=== PATIENT | male | born 1980 | race Caucasian/White ===

== ENCOUNTER 2018-06-22 09:23 | Outpatient (REF) | payer OTHER, SELFPAY ==
[2018-06-22 14:09] LABS: ALT 65 U/L (12-78); AST 36 U/L (15-37); Albumin 4.1 g/dL (3.4-5.0); Alkaline Phosphatase 95 U/L (46-116); BUN 22 mg/dL (7-18); Bilirubin, Total 0.6 mg/dL (0.2-1.0); CREATININE 0.88 mg/dL (0.70-1.30); Calcium 9.1 mg/dL (8.5-10.1); Chloride 103 mmol/L (98-107); Cholesterol 224 mg/dL (50-200); Glucose 123 mg/dL (70-100); HDL Cholesterol 69 mg/dL (40-60); LDL CHOLESTEROL 137 mg/dL (<100); Potassium 4.3 mmol/L (3.5-5.1); Sodium 140 mmol/L (136-145); Total Protein 7.7 g/dL (6.4-8.2); Triglyceride 60 mg/dL (30-150)
[2018-06-22 14:16] LABS: Abs Immature Grans 0.01 k/cumm (0.0-0.09); Absolute Basophil Count 0.04 k/cumm (0.0-0.2); Absolute Eosinophil Count 0.18 k/cumm (0.0-0.7); Absolute Lymphocyte Count 2.09 k/cumm (1.2-3.4); Absolute Monocyte Count 0.39 k/cumm (0.11-0.7); Absolute Neutrophil Count 2.68 k/cumm (1.2-6.7); Basophils % 0.7; Eosinophils % 3.3; HCT 46.5 % (40.0-50.0); HGB 15.8 g/dL (13.5-17.5); Immature Grans % 0.2; Lymphocytes % 38.8; Mean Corpuscular Hemoglobin 29.3 pg (27.0-33.0); Mean Corpuscular Volume 86.1 fL (80-95); Mean Platelet Volume 9.8 fL (8.0-11.0); Monocytes % 7.2; Neutrophils % 49.8; Platelet Count 266 x1000/uL (130-400); RBC Distribution Width 12.7 % (11.8-14.1); White Blood Cell Count 5.39 k/cumm (4.4-10.8)
[2018-06-22 14:21] LABS: COMMENT (LAB VIEW ONLY) 146.22 mg/dL; Microalb ug/mg Crea 50.6 ug/mg Cr
[2018-06-22 14:32] LABS: Hemoglobin A1C 6.2 % (4.5-6.2)
== END 2018-06-22 09:43 ==
LOC: NCHCN 09:23
PROVIDERS: PCP Family Medicine; Visit Provider Family Medicine
DX: R73.01 Impaired fasting glucose (principal); R80.9 Proteinuria, unspecified; Z00.00 Encounter for general adult medical examination without abnormal findings; Z13.220 Encounter for screening for lipoid disorders
CPT/HCPCS: 80053; 80061; 83721; 82043; 82570; 83036; 85025

== ENCOUNTER 2019-02-16 21:16 | Emergency (ER) | payer OTHER, SELFPAY ==
[2019-02-16] VITALS (27 sets, daily range): BP systolic 126–156; BP diastolic 65–91; PULSE 56–71; RESP 10–17; TEMP 36.3; O2SAT 93–98
[2019-02-16] MEDS: Normal Saline Flush 10 ML SYR IVP (21:30)
[2019-02-16 21:45] LABS: Abs Immature Grans 0.01 k/cumm (0.0-0.09); Absolute Basophil Count 0.03 k/cumm (0.0-0.2); Absolute Eosinophil Count 0.15 k/cumm (0.0-0.7); Absolute Lymphocyte Count 3.22 k/cumm (1.2-3.4); Absolute Monocyte Count 0.64 k/cumm (0.11-0.7); Basophils % 0.4; Eosinophils % 1.9; HCT 44.6 % (40.0-50.0); HGB 15.4 g/dL (13.5-17.5); Immature Grans % 0.1; Mean Corp. HGB Concentration 34.5 g/dL (32.0-36.0); Mean Corpuscular Hemoglobin 29.4 pg (27.0-33.0); Mean Corpuscular Volume 85.3 fL (80-95); Neutrophils % 49.6; Platelet Count 272 x1000/uL (130-400); RBC 5.23 m/cumm (4.50-6.00); RBC Distribution Width 12.3 % (11.8-14.1); White Blood Cell Count 8.05 k/cumm (4.4-10.8)
--- NOTE | 2019-02-16 21:51 | ED.GENADUL_ITS ---
Discharge Plan Disposition Patient Disposition: HOME Condition: Good Discharge Details Chief Complaint: Chest Pain Clinical Impression: Fatigue, Chest pain Primary Care Provider: Viji Chun ED Provider: Patrick Lo Home Meds and New Rx's Prescriptions: Continued ibuprofen 200 MG tablet 800 mg PO DAILY PRNRF: 0 Discharge Instructions Instructions: Chest Pain (ED), Fatigue (ED) Additional Instructions: Please return immediately to the emergency department if you develop any new or worsening symptoms or if you become otherwise concerned. It is extremely important that you call soon as possible to make an appointment to be seen in follow-up for this visit by her primary care doctor. It is also extremely important that you undergo an outpatient cardiac stress test as we discussed, which has been ordered for you. Referrals: Viji Chun [Primary Care Provider] - Discharge Data Discharge Date/Time-TO BE ENTERED AT DEPARTURE: 02/17/19 00:50 Medical Decision Making <Lola Ferreira MD - Last Filed: 02/20/19 07:42> Andrew Tanner is a 38 year-old man with history of hypertension controlled with diet who presented to the emergency department with 1 week of fatigue, intermittent lightheadedness without syncope, and intermittent chest pain not currently occurring. On exam patient is very well nontoxic-appearing. Inferior aspect of sternum with diffuse mild tenderness palpation without other abnormal findings on examination of the chest. Benign cardiopulmonary and abdominal exams. Benign examination of the lower extremities. Concern for dehydration, metabolic/lyte disturbance, doubt ACS, PE. Exam/history is not consistent with acute emergent intra-abdominal process, acute emergent aortic pathology, sepsis. Plan for EKG, chest x-ray, IV fluid hydration, screening labs, telemetry. Will monitor and reassess. Patient reporting no symptoms on reassessment. EKG, chest x-ray, labs nondiagnostic. Plan for repeat troponin, repeat EKG, and outpatient stress test, follow-up if work-up negative. Pt signed out to Dr. Lo at time of shift change with repeat EKG and repeat trop pending, anticipate d/c to home if repeat trop/ekg negative. Outpt stress test ordered. Medical Records Medical records reviewed: Yes I reviewed the patient's medical records. Imaging Data Radiologic Study: Attestation: I personally reviewed and interpreted this imaging study as follows: Radiologist's impression: Exam: XR Chest, 2 Views Exam date and time: 02/16/2019 9:35 PM Age: 38 years old Clinical history: Chest pressure and sternal or substernal pain TECHNIQUE: Imaging protocol: XR of the chest Views: 2 views. COMPARISON: No relevant prior studies available. FINDINGS: Lungs: Normal pulmonary expansion. Pulmonary vasculature grossly normal. No infiltrates. Pleural space: No pleural effusion. No pneumothorax. Heart/Mediastinum: Heart size normal. No tracheal/mediastinal shift. Bones/joints: No acute osseous abnormalities are identified. IMPRESSION: No acute thoracic process. Lab Data Lab results reviewed: Yes I reviewed the patient's lab results. Labs: Laboratory Tests Range/Units 02/16/19 02/16/19 02/16/19 21:30 21:30 21:30 WBC (4.4-10.8) k/cumm 8.05 RBC (4.50-6.00) m/cumm 5.23 Hgb (13.5-17.5) g/dL 15.4 Hct (40.0-50.0) % 44.6 MCV (80-95) fL 85.3 MCH (27.0-33.0) pg 29.4 MCHC (32.0-36.0) g/dL 34.5 RDW (11.8-14.1) % 12.3 Plt Count (130-400) x1000/uL 272 MPV (8.0-11.0) fL 9.0 Immature Gran % 0.1 Neutrophils % 49.6 Lymphocytes % 40.0 Monocytes % 8.0 Eosinophils % 1.9 Basophils % 0.4 Absolute Neutrophils (1.2-6.7) k/cumm 4.00 Absolute Lymphocytes (1.2-3.4) k/cumm 3.22 Absolute Monocytes (0.11-0.7) k/cumm 0.64 Absolute Eosinophils (0.0-0.7) k/cumm 0.15 Absolute Basophils (0.0-0.2) k/cumm 0.03 D-Dimer (<500) ng/mlFEU 171 Sodium (136-145) mmol/L 138 Potassium (3.5-5.1) mmol/L 3.9 Chloride (98-107) mmol/L 102 Carbon Dioxide (21.0-32.0) mmol/L 25.9 Anion Gap (3-11) mmol/L 10.1 BUN (7-18) mg/dL 19 H Creatinine (0.70-1.30) mg/dL 0.87 Estimated GFR/1.73 m2 (mL/min/1.73m2) >= 60.00 Glucose (74-106) mg/dL 125 H Calcium (8.5-10.1) mg/dL 8.9 Magnesium (1.8-2.4) mg/dL 2.0 Total Bilirubin (0.2-1.0) mg/dL 0.6 AST (15-37) U/L 42 H ALT (16-63) U/L 71 H Alkaline Phosphatase (46-116) U/L 91 Troponin I (<0.06) ng/Ml < 0.05 NT-Pro-B Natriuret Pep (<300) pg/mL 7 Total Protein (6.4-8.2) g/dL 8.0 Albumin (3.4-5.0) g/dL 4.2 TSH (0.36-3.74) uIU/mL Range/Units 02/16/19 21:30 WBC (4.4-10.8) k/cumm RBC (4.50-6.00) m/cumm Hgb (13.5-17.5) g/dL Hct (40.0-50.0) % MCV (80-95) fL MCH (27.0-33.0) pg MCHC (32.0-36.0) g/dL RDW (11.8-14.1) % Plt Count (130-400) x1000/uL MPV (8.0-11.0) fL Immature Gran % Neutrophils % Lymphocytes % Monocytes % Eosinophils % Basophils % Absolute Neutrophils (1.2-6.7) k/cumm Absolute Lymphocytes (1.2-3.4) k/cumm Absolute Monocytes (0.11-0.7) k/cumm Absolute Eosinophils (0.0-0.7) k/cumm Absolute Basophils (0.0-0.2) k/cumm D-Dimer (<500) ng/mlFEU Sodium (136-145) mmol/L Potassium (3.5-5.1) mmol/L Chloride (98-107) mmol/L Carbon Dioxide (21.0-32.0) mmol/L Anion Gap (3-11) mmol/L BUN (7-18) mg/dL Creatinine (0.70-1.30) mg/dL Estimated GFR/1.73 m2 (mL/min/1.73m2) Glucose (74-106) mg/dL Calcium (8.5-10.1) mg/dL Magnesium (1.8-2.4) mg/dL Total Bilirubin (0.2-1.0) mg/dL AST (15-37) U/L ALT (16-63) U/L Alkaline Phosphatase (46-116) U/L Troponin I (<0.06) ng/Ml NT-Pro-B Natriuret Pep (<300) pg/mL Total Protein (6.4-8.2) g/dL Albumin (3.4-5.0) g/dL TSH (0.36-3.74) uIU/mL 3.56 ECG Data Attestation: I personally reviewed and interpreted this ECG (s) as follows: Interpretation: EKG shows sinus rhythm at 63, normal axis, no acute ischemic changes, nondiagnostic EKG <Patrick Lo MD - Last Filed: 02/17/19 00:40> Patient signed out to me pending repeat troponin and EKG. Patient had presented with chest pain and fatigue. Seen primarily by Dr. Ferreira, please see her note for presentation. Work-up unremarkable. Patient's repeat EKG remains sinus rhythm at a rate of 83. Normal axis and intervals. No ST changes. Repeat troponin negative. Patient will be discharged home to follow-up with primary care next week. Dr. Ferreira has ordered an outpatient stress test. Lab Data Lab results reviewed: Yes I reviewed the patient's lab results. ECG Data Attestation: I personally reviewed and interpreted this ECG (s) as follows: Prior ECG tracings: available for review Interpretation: Sinus rhythm at 83. Normal axis and intervals. Normal ST segments. HPI <Lola Ferreira MD - Last Filed: 02/20/19 07:42> General Mode of arrival: ambulatory . Date/Time Provider Initiated Documentation: 02/16/19 21:24 . Limitations to Documentation: no limitations . Information obtained by: patient, RN notes reviewed and old records reviewed . HPI Narrative: Andrew Tanner is a 38-year-old man with a history of hypertension improved with diet presenting to the emergency department with fatigue, chest pain. Patient reports that over the past week he has noticed that he feels more tired than usual. He has also had intermittent pain in his left upper abdomen and right upper abdomen; these seem to have resolved a few days ago and are not currently occurring. He has also had mild intermittent light headedness that is nonexertional, has not occurred in the last day or 2. Patient reports that he has noticed central chest pain intermittently in the past few days, nonexertional, nonpleuritic, non-positional. 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 Patient reports that his feeling of general fatigue has persisted. He denies fevers, shortness of breath, cough, palpitations, any other pain, vomiting, diarrhea, numbness, weakness. No recent illness, no recent travel, has been eating and drinking as usual. Patient reports that his chest pain is not currently occurring. Related Data Home Medications Medication Instructions Recorded Confirmed ibuprofen 800 mg PO DAILY PRN 08/03/13 06/14/17 Allergies Allergy/AdvReac Type Severity Reaction Status Date / Time No Known Allergies Allergy Unverified 06/14/17 12:39 General Stated Complaint: Chest Pain ITALO: 3 Review of Systems <Lola Ferreira MD - Last Filed: 02/20/19 07:42> Narrative: Constitutional: denies fevers, reports fatigue Eyes: denies eye pain ENT: denies facial pain, dental pain, sore throat Cardiovascular: denies edema, reports chest pain, lightheadedness Respiratory: denies SOB, cough GI: denies vomiting, diarrhea, reports right upper and left upper quadrant abdominal pain resolved for the past few days : denies flank pain MSK: denies back pain, neck pain, arthralgias, myalgias Skin: denies rash Neuro: denies headaches, numbness, weakness PFSH <Lola Ferreira MD - Last Filed: 02/20/19 07:42> Social History Smoking/Tobacco Use Status: Never Drug use: Never Do you feel safe at home: Yes Do you feel safe in your relationship?: Yes Exam <Lola Ferreira MD - Last Filed: 02/20/19 07:42> Narrative Exam Narrative: Constitutional: well and [id number], pleasant, conversing normally HENT: head atraumatic/normocephalic/normal inspection, mucous membranes moist Eyes: conjunctiva normal, sclera normal, pupils 3mm b/l Neck: no stridor, normal ROM, trachea midline Chest: normal inspection, inferior aspect of sternum diffusely tender to palpation without crepitus, deformity, or overlying skin changes, left and right lower lateral and anterior ribs nontender to palpation Resp: normal work of breathing, LCTAB Cardio: normal rate, normal rhythm, no murmur appreciated GI: abdomen soft, non-tender, non-distended Skin: warm, dry, normal color, no rash Neuro: alert, not altered, grossly non-focal, normal tone Ext: no edema, no posterior calf tenderness to palpation Psych: normal mood, normal affect, normal behavior Course <Lola Ferreira MD - Last Filed: 02/20/19 07:42> Vital Signs Vital signs: Vital Signs Temperature 36.3 C L 02/16/19 21:28 Pulse 63 02/16/19 21:28 Respiratory Rate 16 02/16/19 21:28 Blood Pressure 146/84 H 02/16/19 21:28 Pulse Oximetry 97 02/16/19 21:28 Temperature 36.3 C L 02/16/19 21:28 Temperature Source Temporal Artery Scan 02/16/19 21:28 Pulse 63 02/16/19 21:28 Respiratory Rate 16 02/16/19 21:28 Blood Pressure 146/84 H 02/16/19 21:28 Blood Pressure Position Supine 02/16/19 21:28 Pulse Oximetry 97 02/16/19 21:28 Oxygen Delivery Method Room Air 02/16/19 21:28 Oxygen Flow Rate 0 02/16/19 21:28 Pain Level 5 02/16/19 21:28 Lab/Test Results Lab/Test Results: Laboratory Tests Range/Units 02/16/19 21:30 WBC (4.4-10.8) k/cumm 8.05 RBC (4.50-6.00) m/cumm 5.23 Hgb (13.5-17.5) g/dL 15.4 Hct (40.0-50.0) % 44.6 MCV (80-95) fL 85.3 MCH (27.0-33.0) pg 29.4 MCHC (32.0-36.0) g/dL 34.5 RDW (11.8-14.1) % 12.3 Plt Count (130-400) x1000/uL 272 MPV (8.0-11.0) fL 9.0 Immature Gran % 0.1 Neutrophils % 49.6 Lymphocytes % 40.0 Monocytes % 8.0 Eosinophils % 1.9 Basophils % 0.4 Absolute Neutrophils (1.2-6.7) k/cumm 4.00 Absolute Lymphocytes (1.2-3.4) k/cumm 3.22 Absolute Monocytes (0.11-0.7) k/cumm 0.64 Absolute Eosinophils (0.0-0.7) k/cumm 0.15 Absolute Basophils (0.0-0.2) k/cumm 0.03 Sign Out <Lola Ferreira MD - Last Filed: 02/20/19 07:42> Sign Out Data: Sign Out Comment: Pt signed out to Dr. Lo at time of shift change with repeat EKG and repeat trop pending. Last updated by Lola Ferreira MD at 02/16/19 23:50
[2019-02-16 22:04] LABS: ALT 71 U/L (16-63); AST 42 U/L (15-37); Albumin 4.2 g/dL (3.4-5.0); Alkaline Phosphatase 91 U/L (46-116); Anion Gap 10.1 mmol/L (3-11); BUN 19 mg/dL (7-18); Bilirubin, Total 0.6 mg/dL (0.2-1.0); CO2 25.9 mmol/L (21.0-32.0); CREATININE 0.87 mg/dL (0.70-1.30); Calcium 8.9 mg/dL (8.5-10.1); Chloride 102 mmol/L (98-107); Glucose 125 mg/dL (74-106); NT-proBNP 7 pg/mL (<300); Potassium 3.9 mmol/L (3.5-5.1); Sodium 138 mmol/L (136-145)
[2019-02-16 22:13] LABS: Troponin I < 0.05 ng/Ml (<0.06)
[2019-02-16 22:15] LABS: D-Dimer 171 ng/mlFEU (<500)
[2019-02-16 22:31] LABS: TSH (W/Ref FT4) 3.56 uIU/mL (0.36-3.74)
--- NOTE | 2019-02-16 23:05 | DI.RAD_ITS ---
EXAM: XR CHEST 2V PA LATERAL CLINICAL HISTORY: chest pain. TECHNIQUE: 2D digital imaging was performed. COMPARISON: CHEST 2 VIEWS PA,LAT from 07/31/2009 FINDINGS: LUNGS: Clear. No pleural abnormality seen. HEART: Normal. MEDIASTINUM: Normal. OTHER FINDINGS:Normal. IMPRESSION: No acute pulmonary findings.
--- NOTE | 2019-02-16 23:16 | DI.VRAD_ITS ---
PROCEDURE INFORMATION: Exam: XR Chest, 2 Views Exam date and time: 02/16/2019 9:35 PM Age: 38 years old Clinical history: Chest pressure and sternal or substernal pain TECHNIQUE: Imaging protocol: XR of the chest Views: 2 views. COMPARISON: No relevant prior studies available. FINDINGS: Lungs: Normal pulmonary expansion. Pulmonary vasculature grossly normal. No infiltrates. Pleural space: No pleural effusion. No pneumothorax. Heart/Mediastinum: Heart size normal. No tracheal/mediastinal shift. Bones/joints: No acute osseous abnormalities are identified. IMPRESSION: No acute thoracic process. Dictated and Authenticated by: Juaquin Reza MD. Ordering:JUAN Davila MD
[2019-02-17] VITALS (9 sets, daily range): BP systolic 123–130; BP diastolic 73–81; PULSE 55–76; RESP 12–20; TEMP 36.8; O2SAT 94–97
--- NOTE | 2019-02-17 00:31 | NUR.NOTE ---
Nursing Note: 2nd set of troponin and EKG taken to rule out cardiac problem. Pt tolerated procedure well. Awaiting results and possibly be discharged home if labs are negative. Pt's pain has been resolved since admit to ED. Pt has slept comfortably during his ED stay. No complaints or needs at this time.
[2019-02-17 00:36] LABS: Troponin I < 0.05 ng/Ml (<0.06)
== END 2019-02-17 00:50 | disposition home or self-care (01) ==
PROVIDERS: Student in an Organized Health Care Education/Training Program; Emergency Provider Emergency Medicine; PCP Family Medicine
DX: R53.83 Other fatigue (principal); R07.9 Chest pain, unspecified; R10.10 Upper abdominal pain, unspecified; I10 Essential (primary) hypertension
CPT/HCPCS: 36415; 80053; 93005; 99285; 71046; 83735; 83880; 84443; 84484; 85025; 85379; 93010; J3490

== ENCOUNTER 2019-02-21 00:08 | Outpatient (CLI) | payer OTHER, SELFPAY ==
--- NOTE | 2019-02-21 08:30 | ETT_ITS ---
APPROVED REPORT Exam: Exercise Treadmill Patient Location: Out-Patient Room/Bed: Stress Nurse: Nellie Whitten RN BMI: 35.60 Baseline Rhythm: Sinus Rhythm Indications: Patient presented to the ER on 02/16/19 with intermittent left sided chest pain, fatigue , and occasional lightheadedness. Medical History Allergies: No known drug allergies Cardiac Risk Factors: FHX of CAD, HTN, Hyperlipidemia Pretest Chest Pain Characteristics: No chest pain Exercise History: Physically active Lung Sounds: Clear to auscultation Heart Sounds: Regular Stress Test Details Test: Exercise stress testing was performed using a Markel protocol. Rest Stress HR Max Heart Rate (APMHR): 180 bpm Resting HR Supine: 61 bpm Target HR (85% APMHR): 153 bpm Resting HR Standin bpm Max HR Achieved: 171 bpm % of APMHR: 95 BP Resting BP Supine: 138/95 mmHg Resting BP Standin/80 mmHg Max BP: 162/78 mmHg BP response to stress: Normal blood pressure response to stress. ECG Resting ECG: Sinus Rhythm ST Change: none Ectopy: none Stress ECG: Sinus Tachycardia ST Change: Normal Arrhythmia: None Recovery ECG: Sinus Rhythm Recovery ST Change: Normal Recovery Arrhythmia: None Clinical Reason for Termination: Fatigue Exercise duration: 12 min03 sec Highest Stage Achieved: Stage 3: 3.4 mph at 14% grade. Exercise capacity: 13.50 METs Functional Capacity: Average Capacity Stress ECG Conclusion 1. Patient exercised for 12 minutes (13.5 METS) which is average exercise capacity for his age 2. The test was ended due to fatigue. The patient reached 95% of predicted heart rate. 3. There was no evidence of ischemia on the ECG portion of the exam 4. The Centeno Score (11) estimates an annual cardiovascular mortality of 0% and a five year survival of 96%. Using the Centeno Score there is a low probability of any angiographic coronary disease. Protocol Used: Markel Protocol Stress Test Summary STAGE Time (mins) Speed (mph) Grade (%) HR BP SYMPTOMS METS Supine 61 138/95 Standing 65 136/80 1 3 1.7 10 97 142/90 4.6 2 6 2.5 12 96 144/92 7 3 9 3.4 14 145 146/92 10.2 4 12 4.2 16 12.9 5 15 5.0 18 17.2 1 min recovery 117 136/66 3 min recovery 97 162/78 6 min recovery 94 140/70 9 min recovery 99 140/88 12 min recovery 91 140/80
== END 2019-02-21 00:28 ==
PROVIDERS: PCP Family Medicine; Visit Provider Student in an Organized Health Care Education/Training Program
DX: R07.9 Chest pain, unspecified (principal); I10 Essential (primary) hypertension; R42 Dizziness and giddiness; R53.83 Other fatigue; E78.5 Hyperlipidemia, unspecified; Z82.49 Family history of ischemic heart disease and other diseases of the circulatory system
CPT/HCPCS: 93017

== ENCOUNTER 2019-05-24 09:20 | Emergency (ER) | payer OTHER, SELFPAY ==
[2019-05-24 09:23] VITALS: BP 129/84; PULSE 63; RESP 15; TEMP 36.4; O2SAT 96
--- NOTE | 2019-05-24 09:45 | DI.CT_ITS ---
EXAM: CT HEAD WO CLINICAL HISTORY: Rosy martinez fell on his head Wednesday, headach. TECHNIQUE: Imaging Protocol: Axial computed tomography images with coronal and sagittal reformatted images were created and reviewed COMPARISON: No exams were available for comparison FINDINGS: Ventricles and Extra axial spaces: Normal in size and morphology for the patient's age. Hemorrhage: None. Cerebral parenchyma: Normal. Midline shift: None. Brainstem/Cerebellum: Normal. Calvarium: Normal. Visualized Paranasal sinuses/Mastoids: Mild ethmoid and right maxillary sinus mucosal thickening. Ma stoid air cells appear clear. IMPRESSION: Normal CT of the head. RADIATION DOSE DELIVERED: DATA REPOSITORY: All CT scans at this facility are submitted to the National Radiology Data Registry (NRDR) Dose Index Registry (DIR) with the [employer] (A[employer]). RADIATION OPTIMIZATION: All CT scans at this facility use at least one of these dose optimization te chniques: automated exposure control; mA and/or kV adjustment per patient size (includes targeted exa ms where dose is matched to clinical indication); or iterative reconstruction.
--- NOTE | 2019-05-24 10:06 | ED.GENADUL_ITS ---
Discharge Plan Disposition Patient Disposition: HOME Condition: Stable Discharge Details Chief Complaint: HeadInjury Clinical Impression: Head injury Primary Care Provider: Viji Chun ED Provider: Dom Rowe Home Meds and New Rx's Prescriptions: No Action No Known Home Meds RF: 0 Discharge Instructions Instructions: Head Injury (ED) Additional Instructions: [id number] Tylenol and/or Motrin as directed for discomfort. Cool compresses as tolerated. Please watch for new or worsening symptoms and return to the ER for any concerns. I do recommend reaching out to your primary care provider for outpatient reevaluation, if symptoms persist outpatient referral to neurology may be indicated. Medical Decision Making 38-year-old gentleman who sustained a head injury on Wednesday. There was no LOC. Headache persists with an altered sensation to his face. He appears well, neurologically intact. Unsure of his tetanus status, will update now. Will obtain head CT to rule out any intracranial process. Most likely diagnosis is that of a head injury with a mild concussion. Laceration occurred on Wednesday, no indication for closure now. Appears well healing, no signs of cellulitis. Tetanus updated. Head CT negative. Discussed findings with patient. He has no additional questions or concerns and is comfortable discharge. He is in no acute distress and remained neurologically intact while under my care. Upon discharge he ambulates steadily Medical Records Medical records reviewed: Yes I reviewed the patient's medical records. Imaging Data Radiologic Study: Imaging: CT Scan Radiologist's impression: CT head without contrast negative per radiology HPI General Mode of arrival: ambulatory . Date/Time Provider Initiated Documentation: 05/24/19 09:32 . Limitations to Documentation: no limitations . Information obtained by: patient . HPI Narrative: Patient with self-reports of prediabetes, presents to the ER for evaluation of a head injury that he sustained on Wednesday. He reports that he had the fall weight of his snowFace.combile martinez fall onto the top of his head. He denies any loss of consciousness. He did have a laceration that was bleeding but stopped on its own. He has not been evaluated over the past 5 days for this. He reports a mild global headache, his face feels either tight or swollen. He denies weakness. He reports maybe sensation is more that of tingling but does have a difficult time. He denies any other injury from the trauma sustained on Wednesday. He is unsure of his tetanus status. He denies visual changes, neck pain, chest pain, shortness of breath, nausea, vomiting, abdominal pain, numbness, tingling, weakness in his extremities. He denies any incontinence Related Data Home Medications Medication Instructions Recorded Confirmed Unknown [No Known Home Meds] 05/24/19 05/24/19 Allergies Allergy/AdvReac Type Severity Reaction Status Date / Time No Known Allergies Allergy Unverified 05/24/19 09:29 General Stated Complaint: HeadInjury ITALO: 3 Review of Systems Constitutional Constitutional: Denies chills, Denies fatigue, Denies fever(s) and Reports heada mare(s) (Headache now, no history of) Eyes Eyes: Denies blurry vision and Denies other visual disturbances ENT Ears, Nose, Mouth, and Throat: Reports headache(s) (Headache now, no history of) Cardiovascular Cardiovascular: Denies chest pain and Denies dyspnea Respiratory Respiratory: Denies dyspnea Gastrointestinal Gastrointestinal: Denies nausea and Denies vomiting Musculoskeletal Musculoskeletal: Denies back pain Integumentary/Breasts Skin/Breast: Denies rash Neurologic Neurologic: Reports headache(s) (Headache now, no history of) Endocrine Endocrine: Denies fatigue PFSH Social History Smoking/Tobacco Use Status: Never Alcohol Intake: current Alcohol Intake frequency: a few times a month Alcohol type: beer Drug use: Never Do you feel safe at home: Yes Do you feel safe in your relationship?: Yes Exam Const General: cooperative, healthy appearing, comfortable and no acute distress Orientation: alert and awake [facility] Head: normal to inspection, no palpable skull fracture, normocephalic and laceration (Well healing-approximated 1 cm laceration to the crown of his head) Ears: external ears normal, TM's normal bilaterally and EAC's normal General nose exam: external nose normal Face and sinus: normal facial exam Mouth: moist mucous membranes Throat: posterior oropharynx normal Eyes General: appearance normal, both eyes and all related structures Alignment and Position: alignment normal Periorbital: periorbital findings normal Eyelids: eyelids normal Conjunctivae: conjunctivae normal Sclera: sclerae normal Cornea: corneas normal Pupils: PERRL EOM: EOM intact bilaterally Direct ophthalmoscopy: normal light reflex Neck Neck: normal visual inspection, full ROM, trachea midline and supple Resp Effort & Inspection: normal respiratory effort and able to speak in complete sentences Auscultation: clear to auscultation bilaterally Cardio Rate: regular rate Rhythm: regular rhythm GI Palpation: not soft and nontender Back/Spine/Pelvis Back: No back tenderness Skin General skin exam: no rashes or lesions noted Neuro General: alert, awake, oriented x3, moves all extremities and no focal motor deficits Cranial Nerves: CN's II-XI intact bilaterally Cognition: normal cognition Speech: speech normal Gait: normal gait Motor: muscle tone normal throughout and strength 5/5 throughout Sensory Exam: no sensory deficits noted Extrem General: normal to inspection and full ROM Psych Appearance: grossly normal Mental Status: mental status grossly normal Course Vital Signs Vital signs: Vital Signs Temperature 36.4 C L 05/24/19 09:23 Pulse 63 05/24/19 09:23 Respiratory Rate 15 05/24/19 09:23 Blood Pressure 129/84 05/24/19 09:23 Pulse Oximetry 96 05/24/19 09:23 Temperature 36.4 C L 05/24/19 09:23 Temperature Source Temporal Artery Scan 05/24/19 09:23 Pulse 63 05/24/19 09:23 Respiratory Rate 15 05/24/19 09:23 Respiratory Effort Non-Labored 05/24/19 09:49 Respiratory Depth Normal 05/24/19 09:49 Respiratory Pattern Normal 05/24/19 09:49 Blood Pressure 129/84 05/24/19 09:23 Blood Pressure Position Sitting 05/24/19 09:23 Pulse Oximetry 96 05/24/19 09:23 Oxygen Delivery Method Room Air 05/24/19 09:23 Oxygen Flow Rate 0 05/24/19 09:23 Pain Level 5 05/24/19 09:23
== END 2019-05-24 11:45 | disposition home or self-care (01) ==
PROVIDERS: Emergency Provider Physician Assistant; PCP Family Medicine
DX: S09.90XA Unspecified injury of head, initial encounter (principal); S01.01XA Laceration without foreign body of scalp, initial encounter; R51 Headache; W26.8XXA Contact with other sharp object(s), not elsewhere classified, initial encounter
CPT/HCPCS: 90471; 99284; 70450

== ENCOUNTER 2019-10-11 08:42 | Outpatient (REF) | payer OTHER, SELFPAY ==
[2019-10-11 19:57] LABS: ALT 73 U/L (16-63); AST 39 U/L (15-37); Alkaline Phosphatase 93 U/L (46-116); Anion Gap 7.9 mmol/L (3-11); BUN 18 mg/dL (7-18); Bilirubin, Total 0.5 mg/dL (0.2-1.0); CO2 29.1 mmol/L (21.0-32.0); CREATININE 0.78 mg/dL (0.70-1.30); Calcium 9.1 mg/dL (8.5-10.1); Calculated LDL 120 mg/dL (<100); Chloride 102 mmol/L (98-107); Cholesterol 206 mg/dL (<200); Glucose 121 mg/dL (74-106); HDL Cholesterol 66 mg/dL (40-60); Potassium 4.3 mmol/L (3.5-5.1); Sodium 139 mmol/L (136-145); Total Protein 7.3 g/dL (6.4-8.2); Triglyceride 103 mg/dL (<150)
== END 2019-10-11 09:02 ==
LOC: NCHCN 08:42
PROVIDERS: PCP Family Medicine; Visit Provider Family Medicine
DX: E11.9 Type 2 diabetes mellitus without complications (principal); E66.9 Obesity, unspecified
CPT/HCPCS: 80053; 80061; 83036

== ENCOUNTER 2020-09-23 19:42 | Outpatient (REF) | payer OTHER, SELFPAY ==
[2020-09-23 16:14] LABS: HCT 44.8 % (40.0-50.0); HGB 14.9 g/dL (13.5-17.5); MCH 29.4 pg (27.0-33.0); MCHC 33.3 % (32.0-36.0); MCV 88.5 fL (80-95); MPV 9.9 fL (8.0-11.0); Platelet Count 244 10^3/uL (130-400); RBC 5.06 10^6/uL (4.36-5.78); RDW 12.3 % (11.8-14.1); RDW-SD 40.3 fL; WBC 5.26 10^3/uL (4.4-10.8)
[2020-09-23 16:31] LABS: Hemoglobin A1C 6.4 % (<5.7)
[2020-09-23 16:55] LABS: ALT 71 U/L (16-63); AST 35 U/L (15-37); Albumin 3.9 g/dL (3.4-5.0); Alkaline Phosphatase 91 U/L (46-116); Anion Gap 10.6 mmol/L (3-11); BUN 20 mg/dL (7-18); Bilirubin, Total 0.7 mg/dL (0.2-1.0); CO2 27.4 mmol/L (21.0-32.0); Calcium 8.9 mg/dL (8.5-10.1); Calculated LDL 108 mg/dL (<100); Chloride 106 mmol/L (98-107); Cholesterol 186 mg/dL (<200); Glucose 146 mg/dL (74-106); HDL Cholesterol 62 mg/dL (40-60); Potassium 4.3 mmol/L (3.5-5.1); Sodium 144 mmol/L (136-145); Total Protein 7.1 g/dL (6.4-8.2); Triglyceride 80 mg/dL (<150)
== END 2020-09-23 19:43 | disposition home or self-care (01) ==
LOC: NCHCN 19:42
PROVIDERS: PCP Family Medicine; Visit Provider Family Medicine
DX: Z00.00 Encounter for general adult medical examination without abnormal findings (principal); E66.9 Obesity, unspecified; E11.9 Type 2 diabetes mellitus without complications
CPT/HCPCS: 80053; 80061; 85027; 83036

== ENCOUNTER 2020-12-04 08:10 | Emergency (ER) | payer OTHER, SELFPAY ==
[2020-12-04 08:16] VITALS: BP 138/87; PULSE 72; RESP 15; TEMP 37.1; O2SAT 96
--- NOTE | 2020-12-04 08:34 | W.ED.GENAD ---
Discharge Plan Disposition Patient Disposition: HOME Condition: Stable Discharge Details Clinical Impression: Left hamstring muscle strain Primary Care Provider: Viji Chun ED Provider: Davina Berrios Home Meds and New Rx's Prescriptions: No Action No Known Home Meds RF: 0 Discharge Instructions Instructions: Muscle Strain (ED) Additional Instructions: Rest Ice Compression, elevation. Please take Tylenol or Ibuprofen with food every 4-6 hours as needed for pain and swelling. Follow up with primary care provider in 3-5 days if needed. Return to ED sooner if any worsening or concerns. Increase oral fluids. Stand Alone Forms: Work Release Discharge Data Discharge Date/Time-TO BE ENTERED AT DEPARTURE: 12/04/20 08:37 Medical Decision Making Patient requesting a work note. Discussed home care including rest ice compression elevation. Work note given. Instructed to follow-up with PCP. Patient remained hemodynamically stable throughout stay. Insert dragon HPI General Mode of arrival: ambulatory. Date/Time Provider Initiated Documentation: 12/04/20 08:28. Limitations to Documentation: no limitations. Information obtained by: patient and RN notes reviewed. HPI Narrative: 40-year-old male presents with a request for work note status post left posterior thigh injury. Patient was playing softball and pulled his hamstring. This occurred 2 days ago. He has been icing it and taking ibuprofen with some relief. He does work at [employer] and is requesting to be off work. No other associated symptoms no masses noted full range of motion. Related Data Home Medications Medication Instructions Recorded Confirmed Unknown [No Known Home Meds] 05/24/19 12/04/20 Allergies Allergy/AdvReac Type Severity Reaction Status Date / Time No Known Allergies Allergy Unverified 12/04/20 08:23 General Stated Complaint: Orthopedic ITALO: 4 Review of Systems All systems reviewed & are unremarkable except as noted in HPI and below Musculoskeletal Musculoskeletal: Reports as per HPI, Denies atrophy, Denies deformity and Reports stiffness (Left hamstring) [facility] Social History Smoking/Tobacco Use Status: Never Smoking risk assessment performed?: Yes Alcohol Intake: current Alcohol Intake frequency: a few times a month Alcohol type: beer Drug use: Never Do you feel safe at home: Yes Do you feel safe in your relationship?: Yes Exam Extrem Left lower extremity: full ROM and hip/thigh Details: normal to inspection, tenderness and normal ROM; no swelling, no abrasions, no lacerations, no ecchymosis, no deformity and no unusual warmth Course Vital Signs Vital signs: Vital Signs Temperature 37.1 C 12/04/20 08:16 Pulse 72 12/04/20 08:16 Respiratory Rate 15 12/04/20 08:16 Blood Pressure 138/87 12/04/20 08:16 Pulse Oximetry 96 12/04/20 08:16 Temperature 37.1 C 12/04/20 08:16 Temperature Source Oral 12/04/20 08:16 Pulse 72 12/04/20 08:16 Respiratory Rate 15 12/04/20 08:16 Respiratory Effort Non-Labored 12/04/20 08:22 Blood Pressure 138/87 12/04/20 08:16 Blood Pressure Position Sitting 12/04/20 08:16 Pulse Oximetry 96 12/04/20 08:16 Oxygen Delivery Method Room Air 12/04/20 08:16 Oxygen Flow Rate 0 12/04/20 08:16 Pain Level 7 12/04/20 08:24
== END 2020-12-04 08:37 | disposition home or self-care (01) ==
PROVIDERS: Emergency Provider Registered Nurse Emergency; PCP Family Medicine
DX: S76.312A Strain of muscle, fascia and tendon of the posterior muscle group at thigh level, left thigh, initial encounter (principal); X50.9XXA Other and unspecified overexertion or strenuous movements or postures, initial encounter; Y93.67 Activity, basketball
CPT/HCPCS: 99282

== ENCOUNTER 2021-01-14 10:46 | Outpatient (REF) | payer OTHER, SELFPAY ==
[2021-01-16 15:31] LABS: COVID-19 RT-PCR UVMMC Result Negative (Negative)
== END 2021-01-14 10:47 | disposition home or self-care (01) ==
LOC: NCHCN 10:46
PROVIDERS: PCP Family Medicine; Visit Provider Nurse Practitioner Family
DX: Z20.822 Contact with and (suspected) exposure to COVID-19 (principal)
CPT/HCPCS: U0003

== ENCOUNTER 2021-12-19 15:03 | Outpatient (CLI) | payer OTHER, SELFPAY ==
[2021-12-19 15:04] LABS: ALT 65 U/L (16-63); AST 29 U/L (15-37); Albumin 4.3 g/dL (3.4-5.0); Alkaline Phosphatase 102 U/L (46-116); Anion Gap 7.1 mmol/L (3-11); BUN 21 mg/dL (7-18); Bilirubin, Total 0.4 mg/dL (0.2-1.0); CO2 29.9 mmol/L (21.0-32.0); CREATININE 0.9 mg/dL (0.70-1.30); Calcium 9.5 mg/dL (8.5-10.1); Calculated LDL 128 mg/dL (<100); Chloride 102 mmol/L (98-107); Cholesterol 229 mg/dL (<200); Estimated GFR 108.68 (mL/min/1.73m2); Glucose 129 mg/dL (74-106); HDL Cholesterol 69 mg/dL (40-60); Potassium 4.3 mmol/L (3.5-5.1); Sodium 139 mmol/L (136-145); TSH (W/Ref FT4) 1.25 uIU/mL (0.36-3.74); Total Protein 8.3 g/dL (6.4-8.2); Triglyceride 160 mg/dL (<150); Troponin I < 50 ng/L (<or=60)
== END 2021-12-19 15:04 | disposition home or self-care (01) ==
LOC: LBO 15:04
PROVIDERS: PCP Family Medicine; Visit Provider Nurse Practitioner Family
DX: R07.89 Other chest pain (principal); E78.5 Hyperlipidemia, unspecified; I10 Essential (primary) hypertension
CPT/HCPCS: 36415; 80053; 80061; 83735; 84443; 84484

== ENCOUNTER 2023-05-06 09:59 | Outpatient (REF) | payer OTHER, SELFPAY ==
[2023-05-06 15:02] LABS: Hemoglobin A1C 6.4 % (<5.7)
== END 2023-05-06 10:00 | disposition home or self-care (01) ==
LOC: NCHCN 09:59
PROVIDERS: PCP Family Medicine; Visit Provider Family Medicine
DX: E11.9 Type 2 diabetes mellitus without complications (principal)
CPT/HCPCS: 83036

== ENCOUNTER 2024-01-27 08:21 | Outpatient (REF) | payer OTHER, SELFPAY ==
--- OUTSIDE RECORDS SUMMARY | 2024-01-27 08:24 | XMS_ITS | Encounter Summary ---
Author Organization [facility] Address [address] [place] [address] Care Team Providers Care Electrical Wirer Name Role Phone Unavailable Primary Care Provider Unavailabl e Encounter Details Date Type Department Care Team (Late st Contact Info) Description 01/15/2021 Lab Requisition [facility] Pathology & Laboratory Medicine - [facility] [address] [place] [address] Outr Resulting Lab, Provider Social History Tobacco Use Types Packs/Day Years Used Date Smoking Tobacco: Never Assessed Sex and Gender Information Value Date Recorded Sex Assigned at Not on file Gender Identity Not on file Sexual Orientation Not on file documented as of this encounter Plan of Treatment Not on file documented as of this encounter Procedures Procedure Name Priority Date/Time Associated Diagnosis Comments ZZCOVID-19 TEST [facility] PCR Today 01/14/2021 10:20 EDT COVID-19 TESTING Routine 01/14/2021 10:2 0 EDT documented in this encounter Results * COVID-19 TEST [facility] PCR (01/14/2021 10:20 EDT) Swab ENTIRE NASOPHARYNX / Unknown 01/14/2021 10:20 EDT 01/15/2021 17:04 EDT Provider Outr Resulting Lab MICROBIOLOGY - GENERAL ORDERABLES [facility] [address] [place] [address] * COVID-19 TESTING (01/14/2021 10:20 EDT) COVID-19 rt-PCR Result Negative Negative 01/16/2021 15:25 EDT [facility] Comment: This test has not been FDA cleared or approved. This test has been authorized by FDA under an EUA for use by authorized laboratories. This test has been authorized only for detection of nucleic acid from 2019-nCoV, not for any other viruses or pathogens. This test is only authorized for the duration of the declaration that circumstances exist justifying the authorization of emergency use of in vitro diagnostic tests for detection and/or diagnosis of 2019-nCoV under section 564(b)(1) of Act, 21 U.S.C ?? 360bbb-3(b) (1), unless the authorization is terminated or revoked sooner. Negative results do not preclude 2019-nCoV infection and should not be used as the sole basis for treatment or other patient management decisions. Negative results must be combined with clinical observations, patient history, and epidemiological information. Testing was performed using the navid SARS-CoV-2 assay ([employer] on the Navid 6800 System Performing Lab Navid 6800 [facility] 01/16/2021 15:25 EDT [facility] Swab 01/14/2021 10:2 0 EDT 01/15/2021 17:04 EDT Provider Outr Resulting Lab MICROBIOLOGY - GENERAL ORDERABLES [facility] [address] [place] [address] documented in this encounter Visit Diagnoses Not on filedocumented in this encounter
--- OUTSIDE RECORDS SUMMARY | 2024-01-27 08:24 | XMS_ITS | Referral Summary ---
Author Organization [facility] Address [address] [place] [address] Care Team Providers Care Public Information Relations Manager Name Role Phone Unavailable Primary Care Provider Unavailabl e Social History Tobacco Use Types Packs/Day Years Used Date Smoking Tobacco: Never Assessed Sex and Gender Information Value Date Recorded Sex Assigned at Not on file Gender Identity Not on file Sexual Orientation Not on file Plan of Treatment Not on file
--- OUTSIDE RECORDS SUMMARY | 2024-01-27 08:24 | XMS_ITS | Encounter Summary ---
Author Organization [facility] [place] [facility] Address [facility] [place] [address] Care Team Providers Care Paper Cleaner Name Role Phone Viji Chun MD Primary Care Provider [phone] Encounter Details Date Type Department Care Team (Latest Contact Info) Description 04/29/2022 Travel Social History Tobacco Use Types Packs/Day Years Used Date Smoking Tobacco: Never Smokeless Tobacco: Never Sex and Gender Information Value Date Recorded Sex Assigned at Not on file Gender Identity Not on file Sexual Orientation Not on file documented as of this encounter Plan of Treatment Not on file documented as of this encounter Visit Diagnoses Not on filedocumented in this encounter Care Teams Paper Cleaner Relationship Specialty Start Date End Date Viji Chun MD [address] [place] [address] PCP - General Family Medicine 01/13/22 documented as of this encounter
--- OUTSIDE RECORDS SUMMARY | 2024-01-27 08:24 | XMS_ITS | Clinical Summary ---
Author Organization [facility] [address] Care Team Providers Care Reinforcing Steel Worker Wire Mesh Name Role Phone Viji Chun MD Primary Care Provider [phone] Allergies No known active allergies Medications No known medications Active Problems No known active problems Social History Tobacco Use Types Packs/Day Years Used Date Smoking Tobacco: Never Smokeless Tobacco: Never Tobacco Cessation:Counseling Given: Not Answered Sex and Gender Information Value Date Recorded Sex Assigned at Not on file Gender Identity Not on file Sexual Orientation Not on file Last Filed Vital Signs Vital Sign Reading Time Taken Comments Blood Pressure 142/90 04/29/2022 9:15 AM EST Pulse 61 04/29/2022 9:15 AM EST Temperature - - Respiratory Rate - - Oxygen Saturation - - Inhaled Oxygen Concentration - - Weight 98 kg (216 lb) 04/29/2022 9:15 AM EST Height 165.7 cm (5' 5.25) 04/29/2022 9:15 AM ES T Body Mass Index 35.67 04/29/2022 9:15 AM EST Plan of Treatment Health Maintenance Due Date Last Done Comments CT Colonography 1978 Colonoscopy 1978 Colorectal Cancer Screening 1978 FIT DNA 1978 FIT 1978 Sigmoidoscopy (10 year) with FIT yearly 1978 Sigmoidoscopy 1978 HIV screen 1996 Lipid Screening 1996 Hepatitis B vaccine (0-59 yrs) (1) 1997 Tetanus/Diphtheria/Pertussis Vaccines (1 - Tdap) 1997 Covid-19 Vaccine (1 - season) 2023 Influenza (Flu) vaccine (1 o f 1 - Influenza standard series) 11/28/2023 Diabetes Screening (HgbA1C or Glucose) 04/29/2025, 04/29/2022 Hepatitis C Screening Completed 04/29/2022 Procedures Procedure Name Priority Date/Time Associated Diagnosis Comments HC HEPATITIS C ANTIBODY Routine 04/29/2022 10:52 AM EST POMPA (nonalcoholic steatohepatitis) HC HEMOGLOBIN A1C Routine 04/29/2022 10: 52 AM EST POMPA (nonalcoholic steatohepatitis) from Last 3 Months or Most Recently Relevant to Health Maintenance Results * Hepatitis C Antibody (04/29/2022 10:52 AM EST) Hepatitis C Antibody Negative Negative [facility] Blood 04/29/2022 10:5 2 AM EST 04/29/2022 11:13 AM EST Narrative Resulting Agency Comment Spec In Lab Rashmi Dejesus APRN CHEMISTRY ORDERABL ES [facility] [place] [id number] * (ABNORMAL) Hemoglobin A1c (04/29/2022 10:52 AM EST) Hemoglobin A1c 6.3(H) 4.3 - 5.6 % [facility] Comment: Reference Range: 4.3 - 5.6% 5.7 - 6.4% - Increased Risk of Developing Diabetes Mellitus >= 6.5% - Consistent with diagnosis of Diabetes Mellitus In the absence of hyperglycemia (i.e. plasma glucose > 200 mg/dL) or classic symptoms of hyperglycemia a repeat measurement of HbA1c should be performed on a separate sample to confirm the diagnosis. Diagnosis and Classification of Diabetes Mellitus, Diabetes Care 2013; 36: Suppl. 1, R95-53 Estimated Average Glucose 135 mg/dL [facility] Comment: eAG equivalents for HbA1c percentages: HbA1c(%) ?eAG(mg/dL) 6.0 ?126 6.5 ?140 7.0 ?154 7.5 ?169 8.0 ?183 8.5 ?197 9.0 ?212 9.5 ?226 10.0 ? 240 Limitations: The eAG calculation has not been validated on women, individuals below 18 years old and above 70 years old, and individuals with hemoglobinopathies. Additional resources are available on the ADA website. Low GANDHI, Simone J, Jermaine R, et al. ??Translating the A1C assay into estimated average glucose values. ??Diabetes Care 2008:31(8):6853-0814. Blood 04/29/2022 10:5 2 AM EST 04/29/2022 11:13 AM EST Narrative Resulting Agency Comment Spec In Lab Rashmi Dejesus APRN CHEMISTRY ORDERABL ES [facility] [place] [address] from Last 3 Months or Most Recently Relevant to Health Maintenance Care Teams Reinforcing Steel Worker Wire Mesh Relationship Specialty Start Date End Date Viji Chun MD [address] [place] [address] PCP - General Family Medicine 01/13/22
--- OUTSIDE RECORDS SUMMARY | 2024-01-27 08:24 | XMS_ITS | Encounter Summary ---
Author Organization [facility] [address] Care Team Providers Care Field Assistant Name Role Phone Viji Chun MD Primary Care Provider [phone] Reason for Referral * Consultation (Routine) - Closed Specialty Diagnoses / Procedures Referred By Shin smith Referred To Contact Gastroenterology Diagnoses Steatosis of liver Elevated LFTs steatosis of liver/elevated lfts Yarely Marina APRN [address] [place] [address] [facility] [place] [address] Referral ID Status Reason Start Date Expiration Date V isits Requested Visits Authorized [id number] Closed Consult, Test & Treat PCP Updated and/or Approved 01/13/2022 01/13/2023 12 12 Encounter Details Date Type Department Care Team (Latest Contact Info) Description 01/13/2022 Transcribe Orders eDH Incoming Referrals [phone] Yarely Marina APRN [address] [place] [address] Steatosis of liver; Elevated LFTs Social History Tobacco Use Types Packs/Day Years Used Date Smoking Tobacco: Never Assessed Sex and Gender Information Value Date Recorded Sex Assigned at Not on file Gender Identity Not on file Sexual Orientation Not on file documented as of this encounter Plan of Treatment Scheduled Referrals Name Type Priority Associated Diagnoses Order Schedule Referral to Gastroenterology Outpatient Referral Routine Steatosis of liver Elevated LFTs Ordered: 01/13/2022 documented as of this encounter Visit Diagnoses Diagnosis Steatosis of liver Other chronic nonalcoholic liver disease Elevated LFTs Other abnormal blood chemistry documented in this encounter Care Teams Field Assistant Relationship Specialty Start Date End Date Viji Chun MD [address] [place] [address] PCP - General Family Medicine 01/13/22 documented as of this encounter
--- OUTSIDE RECORDS SUMMARY | 2024-01-27 08:24 | XMS_ITS | Encounter Summary ---
Author Organization [facility] Address [facility] [place] [address] Care Team Providers Care Digital Marketing Apprentice Name Role Phone Viji Chun MD Primary Care Provider [phone] Reason for Visit * Consultation (Routine) - Closed Specialty Diagnoses / Procedures Referred By Shin smith Referred To Contact Gastroenterology Diagnoses Steatosis of liver Elevated LFTs steatosis of liver/elevated lfts Yarely Marina APRN [address] [place] [address] [facility] [address] [place] [address] Referral ID Status Reason Start Date Expiration Date V isits Requested Visits Authorized [id number] Closed Consult, Test & Treat PCP Updated and/or Approved 01/13/2022 01/13/2023 12 12 Encounter Details Date Type Department Care Team (Late st Contact Info) Description 04/29/2022 9:00 AM EST Office Visit [place] [phone] Rashmi Avalos [employer] [address] POMPA (nonalcoholic steatohepatitis) Social History Tobacco Use Types Packs/Day Years Used Date Smoking Tobacco: Never Smokeless Tobacco: Never Tobacco Cessation:Counseling Given: Not Answered Sex and Gender Information Value Date Recorded Sex Assigned at Not on file Gender Identity Not on file Sexual Orientation Not on file documented as of this encounter Last Filed Vital Signs Vital Sign Reading [...] Mass Index 35.67 04/29/2022 9:15 AM EST documented in this encounter Progress Notes * Rashmi Avalos APRN - 04/29/2022 9:00 AM EST Images from the original note were not included. HEPATOLOGY NEW PATIENT CONSULTATION Andrew Tanner 1980 HOME HEALTH CARE PHYSICIAN: RASHMI AVALOS APRN PCP: Viji Chun MD Requesting Provider: REASON FOR CONSULTATION Hepatic Steatosis HISTORY OF PRESENT ILLNESS Andrew Tanner is a 41 y.o. year old male with past medical history of hyperlipidemia, obesity who presents today for evaluation of hepatic steatosis and elevated liver enzymes. He was diagnosed with high blood pressure 4 years ago so he changed diet, and then changed eating habits and BP improved. He stopped eating at convenience stores. His weight went from 233 a year ago to 210, but has stuck there. past year has been steady dropping down on his weight. Last Hemoglobin A1c was 6.5% about a year ago. ROS: Constitutional: no fatigue, fever, chills, no change in weight >10lbs in last 6 months Eye: no visual changes ENT: no URI symptoms Cardio: no chest pain, palpitations Resp: no cough, no SOB GI: see HPI. No blood in stools, no nausea/vomitting : no dysuria Integumentary: no new rashes, no easy bruising Musculoskeletal: no new joint pains, swelling of ankles or legs Neuro: no new numbness, weakness in extremities PAST MEDICAL/SURGICAL HISTORY Hypertension Prediabetes Obesity MEDICATIONS No outpatient medications have been marked as taking for the 04/29/22 encounter (Office Visit) with Rashmi Avalos APRN. No supplement or vitamins ALLERGIES No Known Allergies SOCIAL HISTORY Lives with partner, Antonia 2 duaghters, 2 sons. Oldest is 23-19, 8, 17. Alcohol: stopped drinkgin 12 years ago, now drinks only 10 beers per year. Cigarettes: none FAMILY HISTORY No family hx of liver disease. Not known. Mom and dad both have diabetes. Doesn't know grandparents history. Grandma had alzheimers PHYSICAL EXAM Vitals: 04/29/22 0915 BP: 142/90 BP Location (NB): Left arm Patient Position: Sitting BP Cuff Sizes: Large Adult (32-43 cm) Pulse: 61 Weight: 98 kg (216 lb) Height: 165.7 cm (5' 5.25) Body mass index is 35.67 kg/m??. Gen: Well appearing, no apparent distress. Skin: no spider angiomata, no palmar erythema, no jaundice. HEENT: Sclerae anicteric, pupils equal, round, react to light. Pharynx unremarkable. Neck is supple, no adenopathy, no thyromegaly. Chest is clear. Heart: Regular rate and rhythm. Normal S1, S2, no murmurs. Abdomen: Normal bowel sounds; soft, non distended. No obvious hepatosplenomegaly. No evidence of ascites Extremities: No edema. Neuro: alert and oriented x3, no asterixis or tremor. 12/19/2021: Ultrasound 01/05/2022: Fibroscan Results: Median kPa: 5.8 kPa Mean IQR: 24% (goal is <30 %) Number of valid measurements: 10 (at least 10 required) Number of invalid measurements: 0 Predicted fibrosis stage: F0-1 CAP (dB/m): 362 Estimated steatosis grade: 3/3 % hepatocytes affected: > 66 % ASSESSMENT/PLAN Anrdew Tanner is a 41 y.o. male with past medical history of hypertension, obesity and prediabeteswho presents today for evaluation of elevated liver enzymes and hepatic steatosis likely due to POMPA. I will check today for other causes of elevated liver enzymes, including viral hepatitis and ironoverload. His fibroscan does not show any fibrosis and does shows significant steatosis. We discussed treatment for POMPA is based in lifestyle modification with weight loss being the mainstay of treatment. He is working on weight loss, and has already lost 20 lbs in the psat 6 months. Discussed a goal of 10-15% total body weight loss. Recommendations: - Blood work today - continue with efforts around weight loss. - discussed Mediterranean diet, avoiding sweetened beverages - Can follow up with PCP. If FIB-4 becomes elevated over 1.3 would recommend referral back to GI for repeat fibroscan to evaluate for any progression of fibrosis. Rashmi Avalos APRN Section of [place]enter[place] [address] Copy: Viji Chun MD [address] / [facility] [address] Time spent reviewing records prior to this encounter: 6 minutes Time spent during encounter with patient including counselin minutes Time spent documenting encounter on date of service: 10 minutes Approximate total time devoted to this single encounter on date of service: 61 minutes This is exclusive of the time spent performing the Fibroscan procedure. documented in this encounter Plan of Treatment Not on file documented as of this encounter Procedures Procedure Name Priority Date/Time Associated Diagnosis Comments HEMOGRAM Routine 04/29/2022 10:52 AM EST POMPA (nonalcoholic steatohepatitis) DIFFERENTIAL, AUTOMATED Routine 04/29/2022 10:52 AM EST POMPA (nonalcoholic steatohepatitis) HC HEPATITIS C ANTIBODY Routine 04/29/2022 10:52 AM EST POMPA (nonalcoholic steatohepatitis) HC IRON BINDING CAPACITY Routine 04/29/2022 10:52 AM EST POMPA (nonalcoholic steatohepatitis) HC HEPATITIS B CORE AB Routine 10:52 AM EST POMPA (nonalcoholic steatohepatitis) HC HEPATITIS B SURFACE AB Routine 04/29/2022 10:52 AM EST POMPA (nonalcoholic steatohepatitis) HC HEPATITIS B SURFACE AG Routine 04/29/2022 10:52 AM EST POMPA (nonalcoholic steatohepatitis) HC CBC,PLT & AUTO DIFF Routine 10:52 AM EST POMPA (nonalcoholic steatohepatitis) HC HEMOGLOBIN A1C Routine 04/29/2022 10: 52 AM EST POMPA (nonalcoholic steatohepatitis) HC FERRITIN, SERUM Routine 04/29/2022 10 :52 AM EST POMPA (nonalcoholic steatohepatitis) COMPREHENSIVE METABOLIC PANEL Routine 04/29/2022 10:52 AM EST POMPA (nonalcoholic steatohepatitis) documented in this encounter Results * Differential, Automated (04/29/2022 10:52 AM EST) Neutrophil % 50.9 % [facility] Neutrophil Absolute 2.94 1.70 - 6.10 x10(3)/[facility] Lymph % 37.4 % [facility] Lymphocytes Abs 2.2 0.9 - 3.2 x10(3)/[facility] Monocyte % 7.5 % [facility] Monocyte Abs 0.4 0.3 - 0.9 x10(3)/[facility] Eos % 3.1 % [facility] Eosinophils Abs 0.2 0.0 - 0.4 x10(3)/[facility] Basophil % 0.9 % [facility] Baso Absolute 0.0 0.0 - 0.1 x10(3)/[facility] Immature Gran % 0.20 % [facility] Comment: Immature granulocytes(IG's)percentage and absolute count will include metamyelocytes, myelocytes, and promyelocytes. Blood smears from CBCs yielding IG's will be scanned manually for concordance. If this scan disagrees with the automated IG or if promyelocytes are noted, a manual differential will be performed. Immature Gran Absolute 0.01 0.00 - 0.04 x10(3)/[facility] Blood 04/29/2022 10:5 2 AM EST 04/29/2022 11:13 AM EST Narrative Resulting Agency Comment Spec In Lab Rashmi Avalos [employer] [facility] HEMATOLOGY ORDERAB LES [facility] [place] [place] [address] * Hemogram (04/29/2022 10:52 AM EST) White Blood Cell 5.8 4.0 - 9.5 x10(3)/[facility] Red Blood Cell 5.46 4.58 - 5.54 x10(6)/[facility] Hemoglobin 16.1 13.7 - 16.5 g/dL [facility] Hematocrit 46.8 40.5 - 48.5 % [facility] Mean Cell Volume 85.7 82.9 - 93.1 fL [facility] Mean Cell Hemoglobin 29.5 27.5 - 32.1 pg [facility] Mean Cell Hemoglobin Concentration 34.4 32.0 - 35.7 g/dL [facility] Platelet 284 145 - 357 x10(3)/[facility] RDW Standard Deviation 38.9 36.0 - 45.0 fL [facility] RDW coefficient of variation 12.4 11.4 - 13.8 % [facility] Mean Platelet Volume 9.0 7.6 - 12.9 fL [facility] NRBC% auto 0.0 % [facility] NRBC Absolute 0.000 0.000 - 0.000 x10(3)/[facility] Blood 04/29/2022 10:5 2 AM EST 04/29/2022 11:13 AM EST Narrative Resulting Agency Comment Spec In Lab Rashmi Avalos APRN HEMATOLOGY ORDERAB LES [facility] [place] [address] * (ABNORMAL) Ferritin (04/29/2022 10:52 AM EST) Ferritin 677(H) 30 - 400 ng/mL [facility] Comment: Pediatric reference ranges not verified at [facility], interpret with caution. Reference ranges for females greater than 50 years of age approach values for men, i.e., 30-400 ng/mL. Blood 04/29/2022 10:5 2 AM EST 04/29/2022 11:13 AM EST Narrative Resulting Agency Comment Spec In Lab Rashmi Darnell Anjelica [employer] CHEMISTRY ORDERABL ES Performing Organization Address [facility] Co de Phone Number [facility] [place] [address] * Iron and TIBC (04/29/2022 10:52 AM EST) Iron 96 45 - 160 mcg/dL [facility] TIBC 292 250 - 450 mcg/dL [facility] Iron Saturation 33 20 - 50 % [facility] Blood 04/29/2022 10:5 2 AM EST 04/29/2022 11:13 AM EST Narrative Resulting Agency Comment Spec In Lab Rashmi Darnell Anjelica [employer] CHEMISTRY ORDERABL ES Performing Organization Address [facility] de Phone Number [facility] [place] [place] [address] * Hepatitis B Surface Antigen (04/29/2022 10:52 AM EST) Hepatitis B Surface Antigen Negative Negative [facility] Blood 04/29/2022 10:5 2 AM EST 04/29/2022 11:13 AM EST Narrative Resulting Agency Comment Spec In Lab Rashmi Avalos APRN CHEMISTRY ORDERABL ES Performing Organization Address [facility] de Phone Number [facility] [place] [place] [address] * Hepatitis B Surface Antibody (04/29/2022 10:52 AM EST) Hepatitis B Surface Antibody, Quantitative <3.5 IU/L [facility] Comment: HepB Surface Ab Quant: Unvaccinated: < 8.5 IU/L Vaccinated: > 11.5 IU/L Hepatitis B Surface Antibody Negative [facility] Comment: Patient is presumed to be not vaccinated or immune to HBV infection. Expected Results: Vaccinated: Positive Unvaccinated: Negative Blood 04/29/2022 10:5 2 AM EST 04/29/2022 11:13 AM EST Narrative Resulting Agency Comment Spec In Lab Rashmi A [place] [employer] CHEMISTR[facility] ORDERABL ES Performing Organization Address [facility] Co de Phone Number [facility] [place] [address] * Hepatitis B Core Antibody, Total (04/29/2022 10:52 AM EST) Hepatitis B Core Antibody Negative Negative [facility] Blood 04/29/2022 10:5 2 AM EST 04/29/2022 11:13 AM EST Narrative Resulting Agency Comment Spec In Lab Rashmi Avalos [employer] CHEMISTRY ORDERABL ES Performing Organization Address [facility] Co de Phone Number [facility] [place] [address] * Hepatitis C Antibody (04/29/2022 10:52 AM EST) Hepatitis C Antibody Negative Negative [facility] Blood 04/29/2022 10:5 2 AM EST 04/29/2022 11:13 AM EST Narrative Resulting Agency Comment Spec In Lab Rashmi Avalos APRN CHEMISTRY ORDERABL ES Performing Organization Address [facility] de Phone Number [facility] [place] [address] * (ABNORMAL) Hemoglobin A1c (04/29/2022 10:52 AM EST) Pathologist [facility] Hemoglobin A1c 6.3(H) 4.3 - 5.6 % [facility] Comment: Reference Range: 4.3 - [...] Mellitus, Diabetes Care 2013; 36: Suppl. 1, N11-35 Estimated Average Glucose 135 mg/dL [facility] Comment: eAG equivalents for HbA1c [...] into estimated average glucose values. ??Diabetes Care 2008:31(8):8938-6036. Blood 04/29/2022 10:5 2 AM EST 04/29/2022 11:13 AM EST Narrative Resulting Agency Comment Spec In Lab Rashmi Avalos APRN CHEMISTRY ORDERABL ES [facility] [place] [address] * (ABNORMAL) Comprehensive metabolic panel (non-fasting) (04/29/2022 10:52 AM EST) Glucose 131 65 - 199 mg/dL [facility] Comment:Diabetes: >=200 mg/d L plus symptoms Blood Urea Nitrogen 16 10 - 20 mg/dL [facility] Creatinine 0.72(L) 0.80 - 1.50 mg/dL [facility] Sodium 139 135 - 145 mmol/L [facility] Potassium 4.2 3.5 - 5.0 mmol/L [facility] Comment: Please note: ??Patients with WBC >100,000 may have falsely elevated Potassium levels. ??For accurate Potassium quantification in these patients send serum separator tube (gold top) for subsequent determinations. ??Contact the Clinical Chemistry Laboratory if there are any questions. Chloride 104 98 - 107 mmol/L [facility] Carbon Dioxide 23 22 - 31 mmol/L [facility] Anion Gap 12 5 - 15 mmol/L [facility] Calcium 9.5 8.5 - 10.5 mg/dL [facility] Protein, Total 7.5 6.1 - 8.0 g/dL [facility] Albumin 4.7 3.2 - 5.2 g/dL [facility] Aspartate Aminotransferase 31 0 - 39 unit/L [facility] Alanine Aminotransferase 40 0 - 55 unit/L [facility] Alkaline Phosphatase 84 40 - 130 unit/L [facility] Bilirubin, Total 0.6 0.2 - 1.3 mg/dL [facility] Est Glomerular Filtration Rate 116 >=60 mL/min/1. 73 m?? [facility] Comment: This patient's estimated GFR was calculated using the 2020 CKD-EPI equation. The estimated GFR can vary from the measured GFR by up to 30% in the absence of rapidly changing kidney function. Assessment of the estimated GFR is not appropriate when creatinine concentrations are rapidly changing. For clinical situations in which a more precise estimate of GFR is necessary, consider alternative methods of GFR estimation such as a 24-hour urine creatinine clearance. Assignment of CKD stage 1-5 for patients with an eGFR near the transition point between stages may be based on clinical assessment of muscle mass and symptoms in addition to eGFR. Blood 04/29/2022 10:5 2 AM EST 04/29/2022 11:13 AM EST Narrative Resulting Agency Comment Spec In Lab Rashmi Avalos APRN CHEMISTRY ORDERABL ES [facility] [place] [address] documented in this encounter Visit Diagnoses Diagnosis POMPA (nonalcoholic steatohepatitis) Other chronic nonalcoholic liver disease documented in this encounter Care Teams Digital Marketing Apprentice Relationship Specialty Start Date End Date Viji Chun MD [address] [place] [address] PCP - General Family Medicine 01/13/22 documented as of this encounter
--- OUTSIDE RECORDS SUMMARY | 2024-01-27 08:24 | XMS_ITS | Clinical Summary ---
Author Organization [facility] Address [address] [place] [address] Care Team Providers Care Crankshaft Balancer Name Role Phone Unavailable Primary Care Provider Unavailabl e Social History Tobacco Use Types Packs/Day Years Used Date Smoking Tobacco: Never Assessed Sex and Gender Information Value Date Recorded Sex Assigned at Not on file Gender Identity Not on file Sexual Orientation Not on file Plan of Treatment Health Maintenance Due Date Last Done Comments Hepatitis C Screen 1980 Hepatitis B Vaccine (1 of 3 - 19+ 3-dose series) 09/19 COVID-19 Vaccine ( season) 2022
[2024-01-27 17:07] LABS: Hemoglobin A1C 7.1 % (<5.7)
== END 2024-01-27 08:22 | disposition home or self-care (01) ==
LOC: NCHCN 08:21
PROVIDERS: PCP Family Medicine; Visit Provider Family Medicine
DX: E11.9 Type 2 diabetes mellitus without complications (principal)
CPT/HCPCS: 83036

== ENCOUNTER 2024-04-24 11:29 | Day surgery (SDC) | payer OTHER, SELFPAY ==
--- NOTE | 2024-04-23 19:01 | W.PM.DSUDISC ---
Date of service: 04/24/24 Discharge Plan Disposition Patient Disposition: Home Condition: Good Discharge Details Reason For Visit: screening colonoscopy Attending Provider: Sukhwinder Newton Primary Care Provider: Viji Chun Home Meds and New Rx's Prescriptions: Discontinued bisacodyl [Dulcolax (bisacodyl)] 5 mg tablet,delayed release (DR/EC) 5 mg PO ONCE Qty: 4 0RF Rx Instructions: Take per colonoscopy instructions provided by ordering providers office polyethylene glycol 3350 17 gram/dose powder 17 g PO ONCE Qty: 238 0RF Rx Instructions: Take per colonoscopy instructions provided by ordering providers office Discharge Instructions Instructions: Colon polyps Additional Instructions: Andrew, was great meeting you today, and I hope you are comfortable throughout the procedure. Everything went very smoothly. I did find and remove a tiny bit of tissue, that might be a polyp. To be honest, when it is this small it is a little difficult to say. Regardless, I will send this off to the pathologist for their review. If it is in fact a true polyp, we will use that information to help guide the timing of your next colonoscopy. This is certainly nothing at all to worry about. It will take a week or so to get those results back, but once I have them the office will be in touch with any other recommendations. If you need anything, or have any questions in the meantime, please do not hesitate to ask 1. If tolerated, consume a soft, low fiber diet for 1-2 days. [address] Do not drive, drink alcohol, operate machinery, make critical decisions, or do activities that require coordination or balance for 24 hours. 3. Because air was put into your colon during the procedure, expelling air from your rectum (passing gas or farting) is normal. 4. You may not have a bowel movement for 1-3 days because of the colonoscopy prep. This is normal. 5. Go directly to the emergency room if you notice any of the following: Develop chills (warm to touch), or if you have a thermometer and your temperature is above 101 Difficulty breathing or difficultly swallowing Persistent vomiting Severe abdominal pain, other than gas cramps Severe chest pain Black, tarry stools Any bleeding ? exceeding one tablespoon 6. Call your physician if the site where your intravenous was started becomes red, swollen, painful, and warm to touch. 7. Your physician has reviewed your pre-procedure medications. Please continue to take those medications as previously ordered. You will be given specific information/education regarding any changes to your medications before leaving. Activity:: Activity as Tolerated Diet:: As Tolerated Discharge Orders Discharge Orders: Discharge Order (Routine); Ordered 04/23/24 Ordered By: Sukhwinder Newton DS: Diagnosis Discharge Diagnosis (1) Encounter for screening colonoscopy: Status: Acute Asessment and Plan: Follow-up on polypectomy results
--- NOTE | 2024-04-23 19:05 | W.COLOREPORT ---
Date of service: 04/24/24 Time of Service: 14:07 Colonoscopy Report Date of procedure: 04/24/24 Pre-op diagnosis general: screening colonoscopy Post-op diagnosis procedure note: other (Colon polyp) Procedure: colonoscopy with polypectomy Surgeon: Sukhwinder Newton Anesthesia Type: General:No Airway Estimated blood loss (mL): 5 Pathology: other (0.25 cm flat polyp at 120 cm) Complications: None Disposition: same day Indications: Andrew is a 43 year old man who needs a screening colonoscopy Prep: Miralax/Dulcolax Procedure Start Time: 13:46 Procedure End Time: 13:59 Retraction Time: 9 Findings: 0.25 cm flat polyp at 120 cm Procedure Description: After the induction of anesthesia, and with the patient in left lateral decubitus position, I began by performing an external anorectal exam.? Perineum and skin were normal, as was the anal verge.? There was no evidence of external hemorrhoids.? Next, I performed a digital rectal exam.? I did not appreciate any abnormal findings.? Next, I advanced a colonoscope into the rectal vault.? I performed retroflexion.? This appeared normal.? Using insufflation, I then advanced the colonoscope beyond the rectal folds and into the sigmoid colon before advancing towards the cecum. The scope was noted to be in the cecum by identification of the ileocecal valve and appendiceal orifice.? I then began withdrawing the colonoscope using repeated irrigation as necessary for full evaluation of the colonic mucosa. In the ascending colon, approximately 120 cm from the anal verge was a 0.25 cm flat polyp. This was removed with cold forcep polypectomy. There was minimal bleeding. ?Once the scope was withdrawn to the level of the rectum, great care was taken to examine portions of the rectal folds.? Finally, the scope was withdrawn and the patient was brought to the same-day surgery recovery unit as the anesthetic wore off. ?The findings and instructions were shared with the patient prior to discharge. [place] Bowel Prep [place] Bowel Prep Right Colon: 3 Left Colon: 3 Transverse Colon: 3 Total Score: 9
[2024-04-24 11:52] VITALS: BP 136/76; PULSE 78; RESP 20; TEMP 36.7; O2SAT 96
[2024-04-24] MEDS: Lactated Ringers 1,000 ML 80 ML IV (12:03)
--- NOTE | 2024-04-24 12:09 | W.ANESPRE ---
General Info Date of Service Date Performed: 04/24/24 Height: 5 ft 5 in Weight: 97.2 kg Body Mass Index (BMI): 35.6 Surgical Procedure: Operation Date: 04/24/24 13:05 Proposed Procedure Side Surgeon p Nidia Newton MD Meds Allergies and Home Medications Allergies Allergy/AdvReac Type Severity Reaction Status Date / Time No Known Allergies Allergy Verified 04/24/24 11:54 Current Visit Medications: Current Medications Generic Name Dose Route Start Last Admin Trade Name Freq PRN Reason Stop Dose Admin Ringer's Solution 1,000 mls @ 80 mls/hr 04/24/24 06:00 04/24/24 12:03 IV 05/21/24 23:59 80 mls/hr INFUSION MAINOR Administration IV Miscellaneous Supplies 1 each 04/24/24 06:00 Iv Access IV 05/21/24 23:59 DIRECTED MAINOR Ondansetron HCl 4 mg 04/23/24 19:06 Ondansetron 4 Mg/2 Ml Vial IVP 05/23/24 19:05 Q4H PRN PRN Nausea / Vomiting Sodium Chloride 0 ml 04/24/24 06:00 Normal Saline Flush 10 Ml Syr IV 05/21/24 23:59 PRN PRN Sodium Chloride 0 ml 04/24/24 06:00 Normal Saline 10 Ml Vial IJ 05/21/24 23:59 DIRECTED PRN Sterile Water 0 ml 04/24/24 06:00 Water,Injection,Sterile 10 Ml Vial IJ 05/21/24 23:59 DIRECTED PRN PFSH Active Problems Active Problems: Problem Status Onset Code Encounter for screening colonoscopy Acute Z12.11 Encounter for wound re-check Acute Z51.89 Elevated LFTs Acute R79.89 Steatosis of liver Acute K76.0 Obesity Chronic E66.9 Sebaceous cyst Acute L72.3 Diabetes mellitus Chronic E11.9 Medical History Medical History Proteinuria Neck pain, chronic Pain, joint, hip, left Seasonal allergies GERD (gastroesophageal reflux disease) Chest discomfort Per pt. states he had a stress test and passed it with flying colors per pt. Hyperlipidemia Strain of groin Resolved 04/20/2021 Acute pain of left hip Onset 04/08/2021 Workers' Compensation Injury Resolved 04/20/2021 Left hamstring muscle strain Head injury Tobacco Smoking/Tobacco Use Status: Never Alcohol Alcohol Intake: current Alcohol intake frequency: holidays/special occasions only Alcohol type: beer Substance Use Substance use: Never Substance use type: does not use Vital Signs and Lab Results Vital Signs Most Recent Vital Signs in EMR: Most Recent Vital Signs Temp Pulse Resp BP Pulse Ox 36.7 C 78 20 136/76 96 04/24/24 11:52 04/24/24 11:52 04/24/24 11:52 04/24/24 11:52 04/24/24 11:52 Lab Results Blood Type / Crossmatch: No Data to Display Complete Blood Count: No Data to Display Complete Metabolic Panel: No Data to Display Liver Function Panel: No Data to Display Coagulation Panel: No Data to Display Cardiac Panel: No Data to Display Arterial Blood Gas: No Data to Display Venous Blood Gas: No Data to Display Pancreas Panel: No Data to Display Thyroid Panel: No Data to Display Infectious Disease: No Data to Display Blood Cultures: No Data to Display Toxicology Panel: No Data to Display Anesthesia Assessment and Plan Anesthesia History Personal History: No History of Anesthesia Complications Family History: No Family History of Anesthesia Complications Exercise Tolerance Exercise Tolerance: Metabolic Equivalents>4 Cardiac & Pulmonary Exam Cardiac Exam: Normal S1/S2 Heart Sounds Pulmonary Exam: Clear Bilateral Breath Sounds Implantable Cardiac Device Does patient have a Pacemaker or an ICD?: No Airway Exam Known Difficult Airway: No Mallampati Class: 3 Mouth Opening: Narrow (< 3cm) Thyromental Distance: Greater than 3 cm Neck Range of Motion: Full ROM Neck Circumference: Normal Teeth Condition: Normal Dentition ASA Classification ASA Score: ASA 2 Emergency Case?: No NPO Status NPO Status: NPO Clears >2 hours, Solids >8 hours Anesthesia Plan Resuscitation Status: Full Code Anesthesia Technique: General Anesthesia Airway Planned: Natural Airway Monitors Used: Standard Monitors Preoperative Comments:: 43 yo male for colo. Sig PMHx: GERD (denies, states this was a while ago), DM (last A1c 7.1. Working with his PCP to lower this. Doing diet and lifestyle modification with a recheck in apr), never smoker, occ EtOH. Stress: 13.5 METs, no ECG evidence of ischemia.
[2024-04-24 12:13] VITALS: BMI 35.6
--- NOTE | 2024-04-24 13:54 | BOWEL_PTH ---
PATIENT: Andrew Tanner LOC: [facility] U#:[id number] AGE/SX: 43/M ROOM: RE04/24/[address]: Sukhwinder Newton MD : 1980 BED: DIS: 04/24/2024 SPEC #: [id number] RECD: 04/24/24 15:51 STATUS: [place] REQ #: [id number] LEONID: 04/24/24 13:[address]: Sukhwinder Newton DEPT: Surgical Specimen RECD BY: Sharda Cooper ENTERED: 04/24/24 15:51 SP TYPE: Bowel OTHR DR: Viji Chun Tissues: 1 - BIOPSY BOWEL Procedures: GROSS AND MICRO LEVEL 4 Comments: [id number]
[2024-04-24 14:04] VITALS: BP 132/89; PULSE 73; RESP 20; TEMP 36.6; O2SAT 95
[2024-04-24 14:35] VITALS: BP 115/87; PULSE 63; RESP 20; TEMP 36.7; O2SAT 95
--- NOTE | 2024-04-24 15:19 | W.ANESPOSTOP ---
Postoperative Evaluation Date, Time and Location Date Performed: 04/24/24 Time Performed: 14:30 Patient Location: Day Surgery Unit Vital Signs Most Recent Imported Vital Signs: Most Recent Vital Signs Temp Pulse Resp BP Pulse Ox 36.7 C 63 20 115/87 95 04/24/24 14:35 04/24/24 14:35 04/24/24 14:35 04/24/24 14:35 04/24/24 14:35 Pain Score Most Recent Pain Score: Most Recent Pain Score Pain Level 0 04/24/24 14:35 Assessment Mental Status: Awake (Alert & Oriented to Patient Baseline) Airway and Respiratory Function: Patent airway with normal (patient baseline) respiratory exam Cardiovascular Function: Hemodynamically Stable Hydration Status: Adequately Hydrated Nausea & Vomiting: No Nausea or Vomiting Pain: Pt. Denies Any Pain Peripheral Nerve Block: Patient did not receive a nerve block
== END 2024-04-24 14:52 | disposition home or self-care (01) ==
LOC: SUR 11:30
PROVIDERS: PCP Family Medicine; Visit Provider Surgery
PROC: 0DJD8ZZ Inspection of Lower Intestinal Tract, Via Natural or Artificial Opening Endoscopic (ICD-10-PCS; CPT 45378; principal; 2024-04-24 13:00)
DX: Z12.11 Encounter for screening for malignant neoplasm of colon (principal); D12.3 Benign neoplasm of transverse colon
CPT/HCPCS: 45380; 88305; J2704

== ENCOUNTER 2025-03-02 20:02 | Emergency (ER) | payer OTHER, SELFPAY ==
[2025-03-02] VITALS (15 sets, daily range): BP systolic 119–150; BP diastolic 60–97; PULSE 54–68; RESP 13–20; TEMP 37.1; O2SAT 96–99
--- NOTE | 2025-03-02 20:00 | RT.EKG_ITS ---
APPROVED REPORT Exam: Resting ECG Reason for Exam: chest pain Patient Location: E HR:64 bpm ECG Measurements Heart Rate 64 AXIS MT 150 P 56 QRSd 99 QRS 41 QT 402 T 37 QTc 416 Conclusion Sinus rhythm...normal P axis, V-rate 60- 99
--- NOTE | 2025-03-02 20:26 | ED.GENADUL_ITS ---
Discharge Plan Disposition Patient Disposition: Home Condition: Stable Discharge Details Clinical Impression: Chest pressure Primary Care Provider: Viji Chun ED Provider: Kurt Bauer Home Meds and New Rx's Prescriptions: No Action No Known Home Meds Discharge Instructions Additional Instructions: Your blood work and CAT scan did not show any concerning findings at this time. I would recommend following up with your primary care provider within 1 to 2 weeks and discuss having a stress test. If you feel more ill or have severe worsening pain or new symptoms such as persistent vomiting return to the emergency department for reevaluation. Stand Alone Forms: Portal Information HPI General Mode of arrival: ambulatory . Date/Time Provider Initiated Documentation: 03/02/25 20:05 . Limitations to Documentation: no limitations . Information obtained by: patient . History of Present Illness 44 year old M presents to the emergency department with the chief complaint of chest pain, described as moderate, Quality is described as other (pressure), and is localized to the chest. Patient reports no radiation. Patient started experiencing this hour(s) (1) and it has been constant. No relieving factors improve symptom(s), No exacerbating factors reported . Patient notes chest pain and shortness of breath; denies fever/chills. Patient did receive the following treatments prior to arrival, none Related Data Home Medications ?Medication ?Instructions ?Recorded ?Confirmed Unknown [No Known Home Meds] 03/02/25 1 05/03/24 Allergies Allergy/AdvReac Type Severity Reaction Status Date / Time No Known Allergies Allergy Verified 03/02/25 20:15 General Stated Complaint: Chest Pain ITALO: 3 Review of Systems All systems reviewed & are unremarkable except as noted in HPI and below Constitutional Constitutional: Denies chills, Denies fever(s) and Denies weakness Cardiovascular Cardiovascular: Reports chest pain and Reports dyspnea Respiratory Respiratory: Denies cough and Reports dyspnea Gastrointestinal Gastrointestinal: Denies abdominal pain, Denies nausea and Denies vomiting Neurologic Neurologic: Denies weakness Exam Const General: no acute distress Orientation: alert HENMT Head: normal to inspection Ears: external ears normal General nose exam: external nose normal Mouth: moist mucous membranes Eyes General: appearance normal, both eyes and all related structures Neck Neck: normal visual inspection Resp Effort & Inspection: normal respiratory effort and able to speak in complete sentences Auscultation: clear to auscultation bilaterally Cardio Jugular venous pressure: no JVD Rate: regular rate Heart Sounds: no murmurs Skin General skin exam: no rashes or lesions noted Neuro General: patient alert and patient oriented x3 Extrem General: normal to inspection Psych Mental Status: mental status grossly normal Course Vital Signs Vital signs: Vital Signs Temperature 37.1 C 03/02/25 20:11 Pulse 66 03/02/25 20:11 Respiratory Rate 20 03/02/25 20:11 Blood Pressure 146/94 H 03/02/25 20:11 Pulse Oximetry 96 03/02/25 20:11 Temperature 37.1 C 03/02/25 20:11 Pulse 66 03/02/25 20:11 Respiratory Rate 20 03/02/25 20:11 Blood Pressure 146/94 H 03/02/25 20:11 Blood Pressure Position Sitting 03/02/25 20:11 Pulse Oximetry 96 03/02/25 20:11 Oxygen Delivery Method Room Air 03/02/25 20:11 Oxygen Flow Rate 0 03/02/25 20:11 Medical Decision Making 44-year-old male with no significant past medical history comes in with 1 hour of chest pressure sensation and a tingling sensation in both his forearms. Denies any diaphoresis, nausea vomiting or radiation of pain. Denies any smoking history, states his dad had heart disease history. He is well-appearing speaking full sentences. He has clear lung sounds, no JVD, no murmur, no leg swelling or calf tenderness. Given his complaint I will check a CBC CMP and troponins and also given his reported shortness of breath obtain a CT of the chest to evaluate for possible PE. He has no tearing back pain and has equal peripheral pulses so I doubt dissection. Labs and CTA show no concerning findings, patient is stable and feels well. Will obtain delta troponin. Patient stable, delta troponin negative. He is asymptomatic. His heart score is 2 so I feel he is stable for discharge he can follow-up with his PCP, return precautions given. Differential Diagnosis Differential Diagnosis: acs, chest wall pain ,pe ECG Data Attestation: I personally reviewed and interpreted this ECG (s) as follows: Prior ECG tracings: available for review Interpretation: Sinus rhythm, rate of 64, CA 150, no STEMI PFSH All Active Problems (Updated 03/02/25 @ 21:50 by Kurt Bauer MD) Chest pressure (Acute) Encounter for wound re-check (Acute) Elevated LFTs (Acute) Steatosis of liver (Acute) Obesity (Chronic) Sebaceous cyst (Acute) Diabetes mellitus (Chronic) Medical History (Updated 03/02/25 @ 21:50 by Kurt Bauer MD) Proteinuria Neck pain, chronic Pain, joint, hip, left Seasonal allergies GERD (gastroesophageal reflux disease) Chest discomfort Per pt. states he had a stress test and passed it with flying colors per pt. Hyperlipidemia Strain of groin Resolved 04/20/2021 Acute pain of left hip Onset 04/08/2021 Workers' Compensation Injury Resolved 04/20/2021 Left hamstring muscle strain Head injury Surgical History (Updated 04/25/24 @ 12:59 by Yolis Ag) History of colonoscopy (~03/2024) Colon polup Social History (Updated 04/14/24 @ 08:57 by CONOR Webb) Smoking/Tobacco Use Status: Never Smoking risk assessment performed?: Yes Alcohol Intake: current Alcohol Intake frequency: holidays/special occasions only Alcohol type: beer Drug use: Never Substance use type: does not use Housing: house Current gender identity: male Do you feel safe at home: Yes Do you feel safe in your relationship?: Yes PAWSS Have you Been Recently Intoxicated or Drunk Within the Last 30 days?: No Have you Ever Experienced Previous Episodes of Alcohol Withdrawal?: No Have you ever Experienced Withdrawal Seizures?: No Have you ever Experienced Delirium Tremens(DT)s?: No Have you ever undergone Alcohol Rehabilitation Treatment (i.e, inpt ot outpatient treatment programs)?: No Have you ever Experienced Blackouts?: No Have you ever Combined Alcohol with other Downers within the last 90 days?: No Have you ever Combined Alcohol with any other Substance of Abuse during the last 90 days?: No Positive Blood Alcohol level on Presentation? [PCS.BAL]: No Evidence of Increased Autonomic Activity (i.e. HR>120, tremor, sweating, agitation, nausea)?: No Result: 0
[2025-03-02 20:55] LABS: Abs Immature Grans 0.02 10^3/uL (0.0-0.06); HCT 43.5 % (40.0-50.0); HGB 14.9 g/dL (13.5-17.5); Immature Grans % 0.3 %; MCH 29.0 pg (27.0-33.0); MCHC 34.3 % (32.0-36.0); MCV 85 fL (80-95); RBC 5.13 10^6/uL (4.36-5.78); RDW 11.9 % (11.8-14.1); RDW-SD 36.2 fL; WBC 6.53 10^3/uL (4.4-10.8)
[2025-03-02 21:10] LABS: Lipase 37 U/L (<53)
[2025-03-02 21:11] LABS: Magnesium 2.1 mg/dL (1.6-2.6)
[2025-03-02 21:12] LABS: ALT 43 U/L (10-49); AST 37 U/L (<34); Albumin 4.4 g/dL (3.2-5.0); Alkaline Phosphatase 96 U/L (46-116); Anion Gap 7.9 mmol/L (3-11); BUN 22 mg/dL (9-23); Bilirubin, Total 0.80 mg/dL (0.2-1.2); CO2 26.1 mmol/L (20.0-31.0); Calcium 8.9 mg/dL (8.3-10.6); Chloride 105 mmol/L (98-107); Glucose 134 mg/dL (74-106); Potassium 3.6 mmol/L (3.5-5.1); Sodium 139 mmol/L (136-145); Total Protein 7.6 g/dL (5.7-8.2)
[2025-03-02 21:14] LABS: TSH (W/Ref FT4) 2.56 uIU/mL (0.55-4.78)
[2025-03-02 21:17] LABS: Troponin I < 3 ng/L (<54)
[2025-03-02] MEDS: Normal Saline - Diluent 50 ML VIAL IJ (21:17)
[2025-03-02] MEDS: Omnipaque 350 MG/ML 100 ML BTL IJ (21:17)
[2025-03-02] MEDS: Normal Saline Flush 10 ML SYR IVP (21:18)
--- NOTE | 2025-03-02 21:19 | DI.CT_ITS ---
Exam(s) CT CHEST PE CTA EXAM: CT CHEST PE CTA CLINICAL HISTORY: chest pain, dyspnea. TECHNIQUE: Imaging Protocol: CT angiography of the chest was performed using pulmonary embolus protocol. Multi planar reconstructions were performed. CONTRAST MATERIAL: Intravenous: Omnipaque 350 Contrast volume: 100 cc COMPARISON: No exams were available for comparison FINDINGS: CHEST: PULMONARY ARTERIES: There are no intraluminal filling defects to suggest acute pulmonary emboli. LUNGS: There are no infiltrates nor evidence of pulmonary infarction.. There are no pleural effusions. MEDIASTINUM: There is no hilar nor mediastinal adenopathy. CARDIAC: Heart size is upper normal. There is no pericardial effusion.Caliber of the thoracic aorta is within normal limits. There is no significant shift of the interventricular septum. PARTIALLY VISUALIZED UPPERMOST ABDOMEN: No obvious findings OSSEOUS: No significant osseous lesions.. IMPRESSION: Negative study. No evidence of acute pulmonary emboli. No evidence of pulmonary infarction.No infiltrates nor pleural effusions. Intrathoracic adenopathy Preliminary virtual Radiology report was reviewed RADIATION DOSE DELIVERED: 287.3mGy.cm Total DLP DATA REPOSITORY: All CT scans at this facility are submitted to the National Radiology Data Registry (NRDR) Dose Index Registry (DIR) with the [employer] (A[employer]). RADIATION OPTIMIZATION: All CT scans at this facility use at least one of these dose optimization techniques: automated exposure control; mA and/or kV adjustment per patient size (includes targeted exams where dose is matched to clinical indication); or iterative reconstruction.
--- NOTE | 2025-03-02 21:28 | DI.VRAD_ITS ---
PROCEDURE INFORMATION: Exam: CTA Chest With Contrast Exam date and time: 03/02/2025 8:50 PM Age: 44 years old Clinical indication: Chest pressure and other: Dyspnea; Chest pain, dyspnea TECHNIQUE: Imaging protocol: Computed tomographic angiography of the chest with contrast. Exam focused on the arteries. 3D rendering (Not supervised by radiologist): MIP and/or 3D reconstructed images were created by the technologist. Total images: 1061 Radiation optimization: All CT scans at this facility use at least one of these dose optimization techniques: automated exposure control; mA and/or kV adjustment per patient size (includes targeted exams where dose is matched to clinical indication); or iterative reconstruction. Contrast material: [id number]; Contrast volume: 70 ml; Contrast route: INTRAVENOUS (IV); COMPARISON: CR XR CHEST 2V PA LATERAL 02/16/2019 11:02 PM FINDINGS: Pulmonary arteries: No filling defect in the pulmonary arterial tree. Aorta: No aortic aneurysm or dissection. Lungs: No consolidation, mass or suspicious pulmonary nodule. Pleural spaces: No pleural effusion or pneumothorax. Heart: No pericardial effusion. Coronary arteries: No coronary calcification. Lymph nodes: No mediastinal, hilar or axillary adenopathy. Bones/joints: No acute bony abnormality. Soft tissues: No significant finding. IMPRESSION: No acute findings/PE. Dictated and Authenticated by: Henry Meneses MD. Orderin Juancarlos Hicks MD
[2025-03-02 22:23] LABS: Troponin I < 3 ng/L (<54)
== END 2025-03-02 22:36 | disposition home or self-care (01) ==
PROVIDERS: Emergency Provider Emergency Medicine; PCP Family Medicine
DX: R07.9 Chest pain, unspecified (principal); R06.02 Shortness of breath; Z82.49 Family history of ischemic heart disease and other diseases of the circulatory system
CPT/HCPCS: 99284; 99285; 36415; 82962; 36416; 71275; 80053; 83690; 93005; 83735; 84443; 84484; 85025; 93010; J3490